=== PATIENT | female | born 1975 | race Caucasian/White ===

== ENCOUNTER 2016-12-20 13:22 | Emergency (ER) | payer OTHER ==
[~2016-12-20] VITALS: Ht 172.7 cm; Wt 59.0 kg
[~2016-12-20 13:22] MED LIST: AUGMENTIN PO; CELEXA PO; CELEXA20 MG PO; DICLOFENAC PO; FIORINAL W/CODE1 CA1 PO; FLEXERIL PO; IBUPROFEN800 MG PO; NO MEDICATIONS; PHENERGAN25 M1 PO; ULTRAM PO; XANAX0.5 M1 PO; ZITHROMAX PO; ZOFRANODT PO
[2016-12-20] MEDS ORDERED: HYDROCODON-ACE1 EA11 PO (14:35)
[2016-12-20 15:02] LABS: BASOPHIL% 0.3 % (0-2.5); EOSINOPHIL# 0.3 X10e3 (0-0.7); EOSINOPHIL% 1.8 % (0.0-7.0); HEMATOCRIT 34.5 % (35.0-45.0); HEMOGLOBIN 11.7 gm/dL (12.0-16.0); LYMPHOCYTE# 2.2 X10e3 (1.0-3.5); LYMPHOCYTE% 15.4 % (17.0-45.0); MEAN CELL VOLUME 91.1 FL (83-96); MEAN PLATELET VOLUME 7.5 FL (6.5-11.5); MONOCYTE% 7.2 % (3.0-12.0); NEUTROPHIL# 10.8 X10e3 (1.5-7.1); NEUTROPHIL% 75.3 % (40-75); PLATELET COUNT 402 X10e3 (140-420); RED BLOOD COUNT 3.79 X10e (3.90-5.30); RED CELL DISTRIBUTION WIDTH 12.8 % (11.0-15.5); WHITE BLOOD COUNT 14.4 X10e3 (4.0-10.5)
[2016-12-20 15:10] LABS: DIFF IND NO
[2016-12-20 15:27] LABS: BUN/CREATININE RATIO 32.5; CALCIUM SERUM 9.4 mg/dL (8.4-10.2); CREATININE SERUM 0.4 mg/dL (0.6-1.4); GLOM FILT RATE Estimated 130.3 mL/min (>60); POTASSIUM 3.5 mmol/L (3.5-5.1)
== END 2016-12-20 17:45 ==
LOC: CED 13:22
PROVIDERS: Emergency Medicine
DX: T81.4XXA Infection following a procedure, initial encounter (principal); L03.116 Cellulitis of left lower limb; L03.115 Cellulitis of right lower limb; I48.91 Unspecified atrial fibrillation; I25.2 Old myocardial infarction; Z79.891 Long term (current) use of opiate analgesic
CPT/HCPCS: 36415; 80048; 85025; 87040; 96374; 96375; 99284; J0696; J2270; J2405